=== PATIENT | female | born 1980 | race Caucasian/White ===

== ENCOUNTER 2017-10-21 15:41 | Emergency (ER) | payer OTHER, SELFPAY ==
[2017-10-21 15:42] VITALS: BP 161/82; PULSE 66; RESP 16; TEMP 36.6; O2SAT 100; BMI 38.6
--- NOTE | 2017-10-21 17:02 | CT_ITS ---
STUDY: CT ABDOMEN AND PELVIS WITH CONTRAST REASON FOR EXAM: Female, 37 years old. Nausea, vomiting and mid abdominal pain. History of tubal ligation and uterine ablation. RADIATION DOSAGE (If Supplied By Facility): CTDIvol = ( 18.30 ) mGy, DLP = ( 1273.57 ) mGycm TECHNIQUE: Transaxial images were obtained from the dome of the diaphragm to the symphysis pubis with oral contrast. 100 ml of Isovue 300 contrast was administered. Sagittal and coronal images were reconstructed. Individualized dose optimization techniques were used for this CT. COMPARISON: None. FINDINGS: The visualized lung bases are unremarkable. The visualized portions of the heart are within normal limits. Fatty liver. Normal gallbladder and extrahepatic biliary system. Normal spleen. Normal pancreas. Normal bilateral adrenal glands. Normal right kidney. Normal left kidney. Normal visualized stomach. Normal small intestine. Normal colon. The appendix is visualized and appears normal. Normal abdominal aorta. Normal inferior vena cava. Normal retroperitoneum. Normal urinary bladder. The uterus demonstrates an expanded, fluid density endometrial space in the fundus measuring 2 cm in diameter and an additional widening and fluid filling of the lower uterine endometrial space with a diameter of 2.5 cm. Status post bilateral tubal ligation. The adnexal areas are otherwise unremarkable. Negative for free fluid. Normal abdominal wall. Normal osseous structures. CT/Abdomen/Pelvis WITH Contrast IMPRESSION: No acute bowel related findings. Negative for evidence of bowel obstruction, bowel perforation or inflammatory bowel changes. A normal appendix is identified. Normal size kidneys bilaterally without hydronephrosis or stones. Fatty liver. Unremarkable gallbladder, pancreas and spleen. Expansion of portions of the endometrial space as described above status post ablation. Negative for other pelvic mass or free fluid of the pelvis. Status post tubal ligation. Normal size ovaries bilaterally. Electronically Signed: Ana Griffin MD at 19:08 EST , Service support ,
[2017-10-21] MEDS: Ondansetron 4 MG/2 ML Vial IV (17:41)
[2017-10-21] MEDS: Ketorolac 30 MG/ML Syringe IV (17:41)
[2017-10-21] MEDS: 0.9% Normal Saline 1,000 ML 1000 ML IV (17:41)
[2017-10-21 17:42] LABS: Absolute Lymphocyte Count 2.01 X10^3/ul (0.83-4.51); Absolute Neutrophil Count 9.1 X10^3/uL (2.0-7.7); Basophil# 0.03 X10^3/uL; Basophil% 0.3 % (0-1); Eosinophil# 0.06 X10^3/uL; Eosinophils% 0.5 % (0-5); Hemoglobin 12.8 g/dl (12.0-15.0); Lymphocyte # 2.01 X10^3/ul (4.0); Lymphocyte % 17.5 % (19-41); Mean Corp Hgb Conc 32.8 g/gl (32-36); Mean Corpuscular Hgb 26.7 pg (27.0-32.0); Mean Corpuscular Volume 81.3 fL (81-99); Mean Platelet Vol. 9.6 fl (6.2-12.0); Monocyte# 0.28 X10^3/uL; Monocyte% 2.4 % (0-10); Neutrophil % 79.1 % (47-70); POSITIVE COUNT NO; POSITIVE DIFFERENTIAL NO; POSITIVE MORPHOLOGY NO; Platelet Count 306 K/mm3 (150-450); RBC Distribution Width CV 13.3 % (11.6-14.6); RBC Distribution Width SD 39.2 fl (35.1-43.9); White Blood Count 11.5 K/mm3 (4.4-11.0)
[2017-10-21 17:55] LABS: AST(SGOT) 26 U/L (15-37); Alanine Aminotransfer ALT/SGPT 47 U/L (13-56); Alkaline Phosphatase 79 U/L (45-117); Anion Gap 10 (5-15); BUN 9 mg/dL (7-18); BUN/Creat Ratio 13.1 RATIO (10-20); Calcium,Total 8.9 mg/dL (8.5-10.1); Chloride 106 mmol/L (98-107); Creatinine, Serum 0.69 mg/dL (0.55-1.02); EST Glomerular Filtration Rate 101 mL/min (>60); Est Glom Filt Rate - Afr Amer 122 mL/min (>60); Estimated Creatinine Clearance 94.52 ml/min; Glucose 108 mg/dL (74-106); Lipase 125 U/L (73-393); Potassium 3.8 mmol/L (3.5-5.1); Sodium Level 139 mmol/L (136-145)
[2017-10-21 18:13] LABS: Pregnancy, Serum, hCG Quali. NEGATIVE Negative (0-9 Nonpreg)
[2017-10-21 18:16] LABS: Bacteria 0 SEEN /hpf (None Seen); Mucous, Urine 0 SEEN /hpf (<or=2+); Red Blood Cells-Urine 0 SEEN /hpf (0-5); Squamous Epithelial Cells - UA 0 SEEN /hpf (5-10); White Blood Cells 0 SEEN /hpf (0-5)
[2017-10-21 18:55] LABS: Color, Urine Straw (Yellow); Glucose, Dipstick Normal (Normal); Ketone-Dipstick Negative (Negative); Leukocyte Esterase-Dipstick Negative /ul (Negative); Nitrite-Dipstick Negative (Negative); Occult Blood-Urine Negative /ul (Negative); Protein-Dipstick Negative (Negative); Urine Bilirubin Dipstick Negative (Negative); Urine Clarity Sl. Cloudy (Clear); Urine Urobilinogen Normal (Normal); Urine pH 6.5 (5.0 - 8.0)
[2017-10-21 19:07] LABS: Amorphous Sediment 1+
--- NOTE | 2017-10-21 19:15 | ED.VISSUMM ---
- ER Visit Summary Date of Service: 10/21/17 Chief Complaint: Back pain History of Present Illness: The patient is a 37 F who complains of back pain for about 5 weeks. She complains of lower back pain which radiates into the right leg down to about the level of the knee. She describes this as burning. She has been seeing a chiropractor. She has a history of prior similar symptoms. However she also complains of 5 weeks of intermittent diffuse nonfocal abdominal pain and nausea and vomiting. She states she was vomiting a lot a couple of days ago and had 3 episodes of nonbloody nonbilious emesis today. She initially attributed this to her pain. She does have a history of anxiety. She denies fever chest pain shortness of breath diarrhea urinary symptoms dysuria frequency urgency. She describes numbness tingling urinary retention or fecal incontinence. Physical Examination: Afebrile vitals are unremarkable Heart regular rate and rhythm Lungs are clear Abdomen soft nontender nondistended No reproducible back tenderness no reproducible abdominal tenderness Negative straight leg raise bilaterally normal strength and sensation of the lower extremities with 5 out of 5 dorsiflexion, plantarflexion, extensor hallucis longus Test Results: Labs notable for white blood cell count 11.5. Hepatic function lipase chemistries all normal. CT of the abdomen and pelvis is normal. Emergency Department Course and Treatment: Patient's history and examination are consistent with a lumbar radiculopathy. I am more concerned about her reported abdominal pain nausea vomiting of 5 weeks. She has a slight leukocytosis but no fever no tachycardia and her CT is normal. She was given prescriptions for naproxen and Flexeril for her back pain. She was advised to follow-up with her primary care physician. She understands to return for new or worsening symptoms was instructed on specific signs and symptoms to monitor for. She was discharged. Treatment Plan: [] Disposition: Discharge Impression: Lumbar radiculopathy Abdominal pain Vomiting This note was generated with [employer] dictation software. It may contain incorrect words, spelling, and punctuation that were not noted in review of the chart prior to signing ED Disposition - Plan for ED Patient: Chief Complaint: Back Referrals: Laura Calderon, CHER-C [Primary Care Provider] -
--- NOTE | 2017-10-21 19:18 | ED.DEP ---
ED Disposition - Plan for ED Patient: Chief Complaint: Back Instructions: ED Sciatica, ED Abdominal Pain Unkn Cause, ED Nausea Vomiting Prescriptions: Naproxen [Naprosyn] 500 mg PO BID #20 tab Cyclobenzaprine [Flexeril] 10 mg PO TID PRN #20 tab PRN Reason: Muscle Spasm Referrals: Laura Calderon, MANAGER [facility]BULATORY[facility]C [Primary Care Provider] -
[2017-10-21 19:34] VITALS: BP 122/74; PULSE 67; RESP 19; O2SAT 97
--- NOTE | 2017-10-21 19:35 | ED.RN ---
PT EDUCATED ON DISCHARGE INSTRUCTIONS AND HOME GOING PRESCRIPTIONS. PT REPORTS UNDERSTANDING. IV D/C AND COVERED WITH 2X2 GAUZE DRESSING. MINIMAL BLEEDING NOTED. AMBULATORY HOME WITHOUT ANY ASSISTANCE FROM STAFF.
== END 2017-10-21 19:37 | disposition home or self-care (01) ==
PROVIDERS: Emergency Provider Emergency Medicine; Family Provider Nurse Practitioner Family; PCP Nurse Practitioner Family
DX: M54.16 Radiculopathy, lumbar region (principal); M54.5 Low back pain; R10.9 Unspecified abdominal pain; R11.2 Nausea with vomiting, unspecified; F41.9 Anxiety disorder, unspecified; Z79.899 Other long term (current) drug therapy
CPT/HCPCS: 74177; 80053; 81001; 83690; 84703; 85025; 96361; 96374; 96375; 99283; Q9967; A4216; J2405

== ENCOUNTER → 2017-12-21 14:05 | Outpatient (CLI) | payer OTHER, SELFPAY ==
[2017-12-21 14:07] LABS: Mucous, Urine 0 SEEN /hpf (<or=2+); Red Blood Cells-Urine 0 SEEN /hpf (0-5); White Blood Cells 0 SEEN /hpf (0-5)
[2017-12-21 14:16] LABS: Color, Urine Yellow (Yellow); Glucose, Dipstick Normal (Normal); Ketone-Dipstick Negative (Negative); Leukocyte Esterase-Dipstick Negative /ul (Negative); Nitrite-Dipstick Negative (Negative); Occult Blood-Urine Negative /ul (Negative); Protein-Dipstick Negative (Negative); Specific Gravity, Urine 1.015 (1.002-1.030); Urine Bilirubin Dipstick Negative (Negative); Urine Clarity Clear (Clear); Urine Urobilinogen Normal (Normal)
[2017-12-21 14:28] LABS: Bacteria RARE /hpf (None Seen); Squamous Epithelial Cells - UA 0-5 SEEN /hpf (5-10)
== END ==
PROVIDERS: Visit Provider Physician Assistant
DX: R35.0 Frequency of micturition (principal)
CPT/HCPCS: 81001; 87086

== ENCOUNTER → 2017-12-22 12:28 | Outpatient (REF) | payer OTHER, SELFPAY | LOC: HPRAD 12:28 | PROVIDERS: Family Provider Nurse Practitioner Family; PCP Nurse Practitioner Family; Visit Provider Chiropractor | DX: M54.16 Radiculopathy, lumbar region (principal); M99.03 Segmental and somatic dysfunction of lumbar region; M99.04 Segmental and somatic dysfunction of sacral region | CPT/HCPCS: 72110 ==

== ENCOUNTER → 2018-03-13 16:25 | Outpatient (CLI) | payer OTHER, SELFPAY ==
--- NOTE | 2018-03-13 16:28 | RAD_ITS ---
STUDY: X-RAY - PELVIS AND RIGHT HIP REASON FOR EXAM: Female, 37 years old. Chronic hip pain. TECHNIQUE: Radiological exam, hip, unilateral, with pelvis when performed; 2 or 3 views. COMPARISON: CT dated October 21, 2017 FINDINGS: There is a non-specific bowel gas pattern. There are bilateral surgical clips suggestive of prior tubal ligation. Normal bilateral iliac wings, sacroiliac joints and visualized sacrum. Normal bilateral superior and inferior pubic rami. Normal pubic symphysis. Normal bilateral ischial tuberosities. Normal visualized femoral head. Normal acetabulum. Normal hip joint. RAD/Hip 2-3 Views with Pelvis IMPRESSION: Within normal limits x-ray examination of the pelvis and hip. Electronically Signed: Elizabeth Gutiérrez MD at 8:57 EDT Tel , Service support ,
== END ==
PROVIDERS: Family Provider Nurse Practitioner Family; PCP Nurse Practitioner Family; Visit Provider Nurse Practitioner Family
DX: M25.551 Pain in right hip (principal)
CPT/HCPCS: 73502

== ENCOUNTER 2018-04-10 17:00 | Outpatient (RCR) | payer SELFPAY ==
--- NOTE | 2018-03-20 17:35 | HP.PTEVAL_ITS ---
Patient's Visit Information KHADIJAH WEINSTEIN is a 37 year old F referred to Physical Therapy by ESSENCE Villa with a diagnosis of R hip pain/ piriformis syndrome. Date of Evaluation: 03/20/18 Physical Therapist: Loyda Lucio, PT - Visit Plan Frequency: 2x /Week Duration: 4 Weeks Plan: Therapeutic exercises and activities targeting BLE, core and low back strength, endurance, range of motion and flexibility. Modalities and Manual as needed, including dry needling 1 x week, to decrease pain, increase range of motion and correct alignment. Incorporate HEP to promote maintainence and independence. - Subjective Subjective: Patient presents in therapy today with right hip/buttock pain that has been going on since September. States pain started as sciatic pain but now just in hip area. Reports that the last 3 days she hasnt had pain but when she does she has severe pain that makes her vomit. She was seeing Dr. Davenport 6-7 times since December but now on an as need basis. She used cold compress, hot bath to help with pain. She has flexural prescribed but does not take it. Pain worsens when standing a long time, bending over, and laying on the right hip. She has been limiting her lifting. 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 X-ray performed with no significant findings. PMHx: No noted heart, respiratory, neuro, MSK issues - Objective Posture: Sitting slouched in chair increased posterior pelvic. Sensation: Intact to light touch. Palpation: Tenderness to palpation along R L2-L4 area, along periformis and R greater trochanter; Tightness to palpation of R piriformis. Alignment: Increased anterior rotation of L ASIS compared to R resulting in L medial malleoli longer than R and L ischial tuberosity deeper than R. Range of Motion: WFL lumbar ROM in all planes except extension moderate limitation. Slight pain with lumbar extension and flexion; B hip and knee WFL. Flexibilty: Mild tightness bilateral hamstrings -15* knee extension; Moderate tightness R piriformis compared to L (mild tightness). Strength: BLE grossly 5/5 strength except bilateral hip abduction 4/5, bilateral hip extension 4/5, bilateral hip flexion 4/5; core strength grossly 4-/5 and low back 4/5 strength. Gait: Patient ambulating with heel/toe foot progression with equal WB through BLE; slight lateral lean of trunk to the right. Patient instucted on self MET to correct pelvic alignment which corrected after exercise and abdominal holds to start as HEP - Goals Goal 1:: Patient will increase core and low back strength by 1 muscle grade for improved posture Goal Time Frame: 4-6 Weeks Goal 2:: Patient will increase B hip strength grossly 5/5 for improved performance with functional activities Goal Time Frame: 4-6 Weeks Goal 3:: Patient will increase B hamstring and piriformis flexibility for improved mobility Goal Time Frame: 4-6 Weeks Goal 4:: Patient will maintain pelvic alignment for 3 consecutive repetitions for improved posture Goal Time Frame: 4-6 Weeks Goal 5:: Patient will display minimal limitation in low back extension for improved mobility Goal Time Frame: 4-6 Weeks Goal 6:: Patient will carry a 10# box 20 ft. without increase in low back or hip pain Goal Time Frame: 4-6 Weeks - Rehabilitation Potential Physical Therapy Diagnosis: Muscle Weakness, Limited Flexibility Rehabilitation Potential: Good - Anticipated Interventions Patient/Client Instruction: Educate patient on: Condition, Plan of Care For the Purpose of:: To decrease pain, To increase ROM, To improve muscle performance and motor function, To improve ability to perform ADL's, To improve ability of physical actions for home/community/work/leisure, To improve gait and locomotor functions, To increase flexibility/ROM, To improve endurance Therapeutic Exercise to Include: Strength training, Endurance training, Body mechanics, Postural training, Flexibilty training, Gait and locomotor training, Passive ROM, Active ROM, Dynamic Lumbar Stabilization, Yves Exercises For the Purpose of:: To decrease pain, To increase ROM, To improve muscle performance and motor function, To improve ability to perform ADL's, To improve performance and independence with ADL's, To improve ability of physical actions for home/community/work/leisure, To improve gait and locomotor functions, To increase flexibility/ROM, To improve endurance Functional Training to Include: ADL Training, Functional work training For the Purpose of:: To increase ROM, To improve muscle performance and motor function, To improve ability to perform ADL's, To improve performance and independence with ADL's, To improve ability of physical actions for home/ community/work/leisure Manual Therapy Techniques to Include: Mobilization, Manipulation, Passive ROM, Functional dry needling, Soft tissue mobilization Comment: massage not covered For the Purpose of:: To decrease pain, To increase ROM, To increase flexibility/ ROM Iontophoresis (with Dexamethozone, with Acetic acid): - not covered by insurance For the Purpose of:: To decrease pain, To increase ROM Thank you for the opportunity to evaluate your patient. For Medicare and Medicare HMO plans, please review the plan of care and approve it. It will need to be FAXED BACK to us at [phone] for Medicare purposes. Please let me know if there are questions or concerns regarding this plan of care. Physician Signature: Date:
--- NOTE | 2018-06-15 11:41 | HP.PTDCNRP_ITS ---
HP - Discharge Summary (1) - Patient Information KHADIJAH WEINSTEIN was seen in my office for initial evaluation on 03/20/18. The following Plan of Care was established for this patient: Initial Frequency: 2x /Week Initial Duration: 4 Weeks - Anticipated Interventions Patient/Client Instruction: Educate patient on: Condition, Plan of Care For the Purpose of:: To decrease pain, To increase ROM, To improve muscle perfo rmance and motor function, To improve ability to perform ADL's, To improve ability of physical actions for home/community/work/leisure, To improve gait and locomotor functions, To increase flexibility/ROM, To improve endurance Therapeutic Exercise to Include: Strength training, Endurance training, Body mechanics, Postural training, Flexibilty training, Gait and locomotor training, Passive ROM, Active ROM, Dynamic Lumbar Stabilization, Yves Exercises For the Purpose of:: To decrease pain, To increase ROM, To improve muscle performance and motor function, To improve ability to perform ADL's, To improve performance and independence with ADL's, To improve ability of physical actions for home/community/work/leisure, To improve gait and locomotor functions, To increase flexibility/ROM, To improve endurance Functional Training to Include: ADL Training, Functional work training For the Purpose of:: To increase ROM, To improve muscle performance and motor function, To improve ability to perform ADL's, To improve performance and independence with ADL's, To improve ability of physical actions for home/community/work/leisure Manual Therapy Techniques to Include: Mobilization, Manipulation, Passive ROM, Functional dry needling, Soft tissue mobilization Comment: massage not covered For the Purpose of:: To decrease pain, To increase ROM, To increase flexibility/ROM Iontophoresis (with Dexamethozone, with Acetic acid): - not covered by insurance For the Purpose of:: To decrease pain, To increase ROM This patient was last seen in our office 04/10/18. Pertinent comments regarding their Physical therapy will appear below: Pt. was seen for her hip and piriformis pain in PT. Pt. was treated with stretching, US, DN and light strengthening. Pt. was having moderate success. Pt. stopped attending PT and has not been seen in ~2 months and will be DC from PT at this point in time. At this point I will be discontinuing this patient from physical therapy. I would be happy to see this patient again in the future if found appropriate by the physician. Thank you! Elfego Nevarez
== END 2018-04-10 19:00 | disposition home or self-care (01) ==
LOC: PT 17:00
PROVIDERS: Family Provider Nurse Practitioner Family; PCP Nurse Practitioner Family; Visit Provider Nurse Practitioner Family
DX: M25.551 Pain in right hip (principal); G57.01 Lesion of sciatic nerve, right lower limb
CPT/HCPCS: 97161

== ENCOUNTER 2018-06-22 16:04 | Observation (INO) | payer OTHER, SELFPAY ==
[2018-06-22] VITALS (7 sets, daily range): BP systolic 108–122; BP diastolic 65–72; PULSE 76–95; RESP 16–18; TEMP 35.9–36.9; O2SAT 93–100; BMI 38.3; BMI 38.1
[2018-06-22 12:09] LABS: Hematocrit 39.5 % (37-47); Hemoglobin 13.1 g/dl (12.0-15.0); Mean Corp Hgb Conc 33.2 g/gl (32-36); Mean Corpuscular Hgb 26.4 pg (27.0-32.0); Mean Corpuscular Volume 79.5 fL (81-99); Mean Platelet Vol. 9.7 fl (6.2-12.0); Platelet Count 267 K/mm3 (150-450); RBC Distribution Width CV 13.7 % (11.6-14.6); RBC Distribution Width SD 39.3 fl (35.1-43.9); Red Blood Count 4.97 M/mm3 (4.2-5.4); Scan Indicated on CBC? Y/N NO; White Blood Count 8.4 K/mm3 (4.4-11.0)
[2018-06-22 12:22] LABS: Internal QC Validated? YES +Cl - CLEAR BKGD
[2018-06-22 12:25] LABS: Pregnancy, Urine Negative Negative
--- NOTE | 2018-06-22 13:00 | HYST_PTH ---
PATIENT: KHADIJAH WEINSTEIN LOC: [facility] U#:[id number] AGE/SX: 37/F ROOM: [facility]325 RE06/22/[address]: Dr. Alicia Houser DO : 1980 BED: 1 DIS: 06/23/2018 SPEC #: [id number] RECD: 06/23/18 08:45 STATUS: SHAKIR REQ #: [id number] CROW: 06/22/18 13:[address]: Alicia Houser DEPT: SURGICAL PATHOLOGY RECD BY: Cuco French ENTERED: 06/23/18 11:07 SP TYPE: HYSTERECT OTHR DR: Laura Calderon, VIRTUALIZATION ENGINEER-C Tissues: Uterus, NOS Procedures: Surgery Specimen Level V HEADER OPERATION: Lap-assisted vaginal hysterectomy, bilateral salpingectomy PRE-OP DIAGNOSIS: Abnormal uterine bleeding status post endometrial ablation TISSUE SUBMITTED: Uterus and bilateral fallopian tubes MICROSCOPIC DIAGNOSIS Uterus and bilateral fallopian tubes, vaginal hysterectomy and bilateral salpingectomy: Cervix - mild chronic cystic cervicitis. Endometrium - weakly proliferative endometrium. Focal fibrosis consistent with status post endometrial ablation. Myometrium - focal adenomyosis. Proximal end right fallopian tube - focal area of old hemorrhage. Detached pieces of bilateral fallopian tubes - no pathologic diagnosis. SJ:rg 06/26/18 MICROSCOPIC DESCRIPTION Slides are reviewed. GROSS DESCRIPTION Received in fixative is one container labeled with the patient's name and designated uterus and bilateral fallopian tubes. The specimen consists of a hysterectomy specimen consisting of uterus with cervix and detached bilateral fallopian tubes. The uterus with cervix weighs 133 gm and measures 10 x 7 x 5 cm. The proximal portion of right fallopian tube is noted and measures 2 cm in length and 1 cm in diameter. One Filshie clip is noted at one edge of the specimen which appears intact. The proximal portion of the left fallopian tube is also present and measures 1.5 cm in length and 0.8 cm in diameter. The serosa is salinas, glistening. The ectocervical mucosa is focally congested. The external os is oval in contour. The endocervical canal measures 3.5 cm in length and the endocervical mucosa is salinas, glistening and unremarkable. The endometrial cavity is triangular and focally obliterated and measures 5 cm in length and 2.5 cm in width. The endometrial cavity is filled with a small amount of blood clots. No mass lesion is identified. The endometrium measures 0.1 cm in thickness. Sections of the uterine wall do not reveal any mass lesion and measures up to 2.5 cm in thickness. The detached fallopian tubes are not identified as right or left. One of the fallopian tube measures 4.5 cm in length and 1 cm in diameter. The fimbrial end is identified. Sections reveal unremarkable cut surfaces. The second tube measures 6 cm in length and 0.8 cm in diameter. It shows a Filshie clip in the proximal portion. This appears intact. Sections reveal unremarkable cut surfaces. Webmaster sections are submitted in ten cassettes as follows: 1 - anterior cervix, 2 - posterior cervix, 3 & 4 - anterior uterine wall, 5 & 6 - posterior uterine wall, 7 - right fallopian tube proximal portion, 8 - left fallopian tube proximal portion, 9 - fallopian tube without Filshie clip, 10 - fallopian tube with Filshie clip. / NAPOLEON:adore 06/23/18 TC:5 CPT: 95311
[2018-06-22] MEDS: Bupivacaine Mpf 0.5% 30 ML VIAL (14:10)
--- NOTE | 2018-06-22 16:18 | PCM.OPRPT ---
Problem List (1) Menorrhagia Status: Acute (2) Dysmenorrhea Status: Acute (3) History of uterine ablation Status: Acute Report of Operation Date of Procedure: 06/22/18 Pre-Operative Diagnosis: History of uterine ablation, post-ablation syndrome, menorrhagia, dysmenorrhea, pelvic pain Post-Operative Diagnosis: As above Surgery/Procedure Performed:: LAVH, BS, cystoscopy Description of Surgical Findings:: Normal liver edge. Normal-appearing uterus. Stenotic cervix with old blood present at time of placement of uterine manipulator. Bilateral fallopian tubes with prior tubal sterilization with Filshie clips present, otherwise normal. Bilateral ovaries normal appearing. Normal pelvis. Minimal adhesions of colon to left pelvic sidewall near broad ligament and left adnexa. Normal bladder gomez and bilateral ureteral jets visualized. skin diving teacher: Jessica Tobin Type of Anesthesia:: General Specimen's removed: Uterus, bilateral fallopian tubes, cervix Estimated Blood Loss (mL): 100 cc Description of Procedure: Indications: Patient is a 37-year-old female who presented with menorrhagia, dysmenorrhea, and pelvic pain. History of prior uterine ablation as well as tubal sterilization. Pelvic ultrasound showed cystic changes within the endometrial canal consistent with prior ablation. Patient desired a hysterectomy after discussion of her risks, benefits, and alternatives. Procedure: Patient was taken to the operating room and placed in dorsal lithotomy position using yellowfin stirrups. General anesthesia was induced. The abdomen, perineum, and vagina were prepped and draped in the usual sterile fashion. A weighted speculum was placed in the vagina and the cervix exposed. A single-tooth tenaculum was placed on the anterior lip of the cervix. A Campbell cannula was placed into the uterus for uterine manipulation. Significant cervical stenosis was noted. Upon placing the uterine manipulator into the uterus, a moderate amount of old blood was present coming from the uterus. Gloves were changed. Attention was then turned to the abdominal portion of the case. Following infiltration with Marcaine, an infraumbilical incision was made to accommodate a 5 mm port. Using the camera for direct direct visualization, the abdomen was entered at the infraumbilical site using a 5 mm port. Once confirmed intra-abdominal, the abdomen was insufflated with CO2 gas. Visualization of the peritoneal cavity was then obtained and inspection did not reveal any signs of complications from entry. The upper abdomen was examined and a normal liver edge was noted. Next under direct observation, two 5 mm ports were placed left lateral and then right lateral. There were minimal adhesions noted of the bowel to the left pelvic sidewall near the left fallopian tube, ovary, and broad ligament. Minimal adhesiolysis was performed using the LigaSure device. The left fallopian tube was then elevated, and the mesosalpinx was then cauterized and transected using the LigaSure device. The left fallopian tube was placed in the pelvic cul-de-sac. The left uterine ovarian ligament was then cauterized several times, and transected. The left round ligament was then cauterized several times, and transected. The broad ligament was then dissected into the anterior and posterior leaflets. The bladder flap was started. We then turned to the right side of the uterus. The right fallopian tube was elevated, and the LigaSure device was used to cauterize and transect along the mesosalpinx. The right utero-ovarian ligament was then cauterized several times using the LigaSure device, and transected. The right round ligament was cauterized several times, and transected. The broad ligament was then dissected into the anterior and posterior leaflets, and the bladder flap was finished. Bilateral uterine arteries were then skeletonized using the LigaSure device. Bilateral uterine arteries were then cauterized several times using LigaSure device. Attention was then turned to the vaginal portion of the case. A Bah catheter was inserted. A weighted speculum was placed in the posterior aspect of the vagina and the uterine manipulator was removed. 1% lidocaine with epinephrine was injected along the cervical vaginal reflection A circumferential incision was made at the cervical vaginal reflection using a scalpel. This was undermined first anteriorly using sharp dissection, and the anterior peritoneum was entered without difficulty. This was then repeated posteriorly. Next the uterosacral and cardinal ligaments were serially clamped, divided, and suture-ligated. This process was repeated on both sides until the specimen was completely freed. The uterus, cervix, and right fallopian tube were removed transvaginally without difficulty. The left fallopian tube was removed from the cul-de-sac. All pedicles were inspected and hemostasis was confirmed. A Gallagher's culdoplasty was performed. 3 [id number] sutures were then placed across the vaginal vault to close the vaginal cuff. All sutures were trimmed. All instruments were removed from the vagina at this time. A cystoscopy was performed in usual fashion. The bladder gomez were well visualized and bilateral ureteral jets were visualized. Gloves were then changed and attention was turned abdominally. The abdomen was insufflated using CO2 gas again and laparoscopy was performed to inspect the abdomen and pelvis. Complete hemostasis was noted. The ports were then removed under direct visualization and hemostasis was noted. The incisions were then closed with interrupted Monocryl sutures. Estimated blood loss was 100 cc. The patient tolerated the procedure well. All sponge, instrument, and sharps were counted and correct. The patient was taken to the recovery room in stable condition. - Admit VTE Documentation VTE Mechan Device Prophylaxis: SCD's
[2018-06-22] MEDS: hydrOXYzine PAM 25 MG Capsule 150 MG PO (19:03)
[2018-06-22] MEDS: Lactated Ringers 1,000 ML 75 ML IV (19:04)
[2018-06-22] MEDS: Sertraline 50 MG Tablet 75 MG PO (19:04)
[2018-06-22] MEDS: Ondansetron 4 MG/2 ML Vial IV (22:23)
[2018-06-22] MEDS: HYDROmorphone 1 MG/ML Syringe IV (22:23)
[2018-06-22] MEDS: 0.9% NaCl Peripheral Flush Adult/Peds IV (22:25)
[2018-06-23 04:00] VITALS: BP 117/67; PULSE 95; RESP 18; TEMP 36.8; O2SAT 95
[2018-06-23] MEDS: oxyCODONE 5 MG Tablet PO ×3 (05:52→11:28)
[2018-06-23 06:45] VITALS: O2SAT 96
[2018-06-23 07:35] VITALS: BP 119/71; PULSE 89; RESP 16; TEMP 36.8; O2SAT 97
[2018-06-23 07:39] LABS: Hematocrit 35.9 % (37-47); Mean Corp Hgb Conc 33.4 g/gl (32-36); Mean Corpuscular Hgb 26.5 pg (27.0-32.0); Mean Corpuscular Volume 79.4 fL (81-99); Platelet Count 277 K/mm3 (150-450); RBC Distribution Width CV 13.8 % (11.6-14.6); RBC Distribution Width SD 39.3 fl (35.1-43.9); Red Blood Count 4.52 M/mm3 (4.2-5.4); White Blood Count 12.3 K/mm3 (4.4-11.0)
[2018-06-23 07:40] LABS: Scan Indicated on CBC? Y/N NO
--- NOTE | 2018-06-23 08:29 | PN.OBGYN_ITS ---
Patient Problems: Active and Suspected Problems (Last Reviewed 01/26/18 @ 10:02 by Janel Casiano) Menorrhagia (Acute) Dysmenorrhea (Acute) History of uterine ablation (Acute) Subjective: Patient doing well this morning. Tolerated a regular diet last night without vomiting. Had some nausea overnight but is now resolved. Has been ambulating to the bathroom and back without difficulty. Has been spontaneously voiding without difficulty. Pain was controlled with IV pain medication overnight, and now she is taking oral pain medication and feels her pain is still controlled. Denies fevers, chest pain, shortness of breath, leg pain. She feels ready to go home today. - Physical Exam General: Alert, Oriented x3 HEENT: Atraumatic Lungs: - - No increased resp effort Abdomen: Soft, Non-Distended, - - ATTP, incisions c/d/i Extremities: No Calf Tenderness Skin: No rashes Neurological: Neuro grossly intact Psych/Mental Status: Normal Affect, Appropriate Vital Signs Temp Pulse Resp BP Pulse Ox 98.2 F 89 16 119/71 97 06/23/18 07:35 06/23/18 07:35 06/23/18 07:35 06/23/18 07:35 06/23/18 07:35 Oxygen Delivery Method Room Air Weight: 223 lb 5.252 oz Body Mass Index (BMI) 38.1 Intake and Output for Last 24 Hours 06/21/18 06/22/18 06/23/18 23:59 23:59 23:59 Intake Total 3067 / 3067 700 / 700 Output Total 375 / 375 2300 / 2300 Balance 2692 / 2692 -1600 / -1600 Laboratory Tests Past 24 Hrs 06/22/18 06/22/18 06/22/18 11:30 11:55 11:55 WBC 8.4 RBC 4.97 Hgb 13.1 Hct 39.5 MCV 79.5 L MCH 26.4 L MCHC 33.2 RDW 13.7 RDW Differential 39.3 Plt Count 267 MPV 9.7 Urine Test Negative Blood Type O NEGATIVE Antibody Screen NEGATIVE 06/23/18 06:50 WBC 12.3 H RBC 4.52 Hgb 12.0 Hct 35.9 L MCV 79.4 L MCH 26.5 L MCHC 33.4 RDW 13.8 RDW Differential 39.3 Plt Count 277 MPV 10.0 Urine Test Blood Type Antibody Screen Medical Necessity - Tobacco Use Smoking Status: Never smoker Assessment/Plan All Active Problems (Last Reviewed 01/26/18 @ 10:02 by Janel Casiano) Menorrhagia (Acute) Dysmenorrhea (Acute) History of uterine ablation (Acute) Segmental and somatic dysfunction of sacral region (Acute) Segmental and somatic dysfunction of pelvic region (Acute) Lumbar radiculopathy, right (Acute) Segmental and somatic dysfunction of lumbar region (Acute) Abdominal pain (Acute) Dysuria (Acute) She is postoperative day 1 from a [facility], BSO, cystoscopy. She is doing well. Meeting her milestones. Urine output was adequate overnight. Afebrile and vital signs stable. Hemoglobin 12 today from 13 preoperatively. Will discharge home today. Discussed surgery findings with patient. Discussed home-going instructions. Options for Percocet, Motrin, and Colace were given. She is to follow-up in 2 weeks, and then in 6 weeks in the office.
--- NOTE | 2018-06-23 08:32 | DCINST_ITS ---
- Discharge Diagnoses Current Active Problems: Current Active and Chronic Problems (Last Reviewed 01/26/18 @ 10:02 by Janel Casiano) Menorrhagia (Acute) Dysmenorrhea (Acute) History of uterine ablation (Acute) You will use the following diet at home:: No restrictions, Regular Discharge Activity: May not drive while taking narcotic pain medications., May Shower, - - No tub baths May resume sexual activity in: 6-8 weeks Weight Bearing Status: Weight bearing as tolerated Lifting Restrictions: No heavy lifting > 25 pounds Call your doctor if your incision/area has: Increased Pain/ Swelling, Increased Redness, Foul Smelling Discharge, Swelling at the incision site Call your doctor if you observe: Fever of 101 or Higher, Inability to urinate, Inability to have a bowel movement, Using more than one pad per hour, Shortness of breath, Dizziness, Chest pain, Calf discomfort, Uncontrolled pain Cleanse incision/area with: Soap & Water Allergies/Adverse Reactions: Allergies ketorolac [From Toradol] Allergy (Verified 06/16/18 11:29) Hives Penicillins Allergy (Verified 12/21/17 09:36) Rash Medications to take at Discharge Hydroxyzine HCl 150 mg PO QHS 10/21/17 Sertraline HCl [Zoloft] 30 mg PO QHS 10/21/17 Docusate Sodium [Colace] 100 mg PO BID PRN #60 capsule 06/22/18 Ibuprofen [Motrin] 800 mg PO Q8H PRN #30 tablet 06/22/18 Oxycodone HCl/Acetaminophen [Percocet 5/325] 1 tab PO Q6H PRN PRN 7 Days #28 tab 06/22/18 The following prescriptions were given: Oxycodone HCl/Acetaminophen [Percocet 5/325] 1 tab PO Q6H PRN PRN 7 Days #28 tab PRN Reason: Pain Ibuprofen [Motrin] 800 mg PO Q8H PRN #30 tablet PRN Reason: Pain Docusate Sodium [Colace] 100 mg PO BID PRN #60 capsule PRN Reason: Constipation Primary Care Physician: Laura Calderon NP-C [Primary Care Provider] - Test Results: Test results from this visit will be discussed in further detail at your follow- up appointment, if applicable. Please Follow Up With: Alicia Houser DO When: 2 weeks and 6-8 weeks
[2018-06-23] MEDS: Docusate Sodium 100 MG Capsule PO (11:33)
== END 2018-06-23 11:39 | disposition home or self-care (01) ==
LOC: SDC 16:16
PROVIDERS: Admitting Provider Obstetrics & Gynecology; Family Provider Nurse Practitioner Family; PCP Nurse Practitioner Family; Referring Provider Obstetrics & Gynecology; Visit Provider Obstetrics & Gynecology
PROC: 0UT9FZZ Resection of Uterus, Via Natural or Artificial Opening With Percutaneous Endoscopic Assistance (ICD-10-PCS; CPT 58552; principal; 2018-06-22 12:35)
DX: N92.0 Excessive and frequent menstruation with regular cycle (principal); N72 Inflammatory disease of cervix uteri; N80.0 Endometriosis of uterus; N73.6 Female pelvic peritoneal adhesions (postinfective); M48.02 Spinal stenosis, cervical region; M99.05 Segmental and somatic dysfunction of pelvic region; M99.04 Segmental and somatic dysfunction of sacral region; M54.16 Radiculopathy, lumbar region; F41.9 Anxiety disorder, unspecified; K21.9 Gastro-esophageal reflux disease without esophagitis; E78.00 Pure hypercholesterolemia, unspecified; Z79.899 Other long term (current) drug therapy
CPT/HCPCS: 58552; 36415; 81025; 85027; 86850; 86900; 88307; 96361; 96374; 96375; 99218; J7120; A4216; G0378; G0379; J2405

== ENCOUNTER → 2020-02-25 16:05 | Outpatient (CLI) | payer OTHER, SELFPAY ==
--- NOTE | 2020-02-25 16:14 | CT_ITS ---
STUDY: CT MAXILLOFACIAL SINUSES REASON FOR EXAM: Female, 39 years old. SINUSITIS, SINUS PRESSURE-BILAT BUT WORSE ON RIGHT, ARMENTA, HEARS and quot; CRACKLING NOISE and quot; IN RT EAR, FEELS LIKE THERE IS WATER IN RT EAR RADIATION DOSAGE (If Supplied By Facility): CTDIvol = ( 33.45 ) mGy, DLP = ( 804.77 ) mGycm TECHNIQUE: The patient was scanned in a multi detector CT scanner. High resolution axial imaging was performed without the administration of intravenous contrast material. Sagittal and coronal images were reconstructed. Individualized dose optimization techniques were used for this CT. COMPARISON: None. FINDINGS: FRONTAL SINUSES: Normal aeration, without mucosal inflammatory disease. ETHMOIDAL SINUSES: Normal aeration, without mucosal inflammatory disease. MAXILLARY SINUSES: Normal aeration, without mucosal inflammatory disease. There is either a polyp or mucous retention cyst in the base of the left maxillary sinus SPHENOIDAL SINUSES: Normal aeration, without mucosal inflammatory disease. There is patency of the bilateral maxillary infundibuli with normal uncinate processes, ethmoid bullae, and hiatus semilunaris. Normal bilateral middle turbinates. Normal bilateral inferior turbinates. There is a right sided nasal septal deviation, with a nasal septal spur. There is patency of the bilateral nasal airways. The visualized osseous structures are normal. The visualized bilateral orbital contents are normal. CT/Sinus/Facial Bone IMPRESSION: Polyp or mucous retention cyst in the base of the left maxillary sinus Remaining paranasal sinuses are free of mucosal thickening or abnormality. Nasal septal deviation to the right No suspicious osseous lesion Electronically Signed: Van Vazquez MD at 8:21 EDT , Service support ,
== END ==
PROVIDERS: PCP Nurse Practitioner Family; Referring Provider Otolaryngology; Visit Provider Otolaryngology
DX: J32.9 Chronic sinusitis, unspecified (principal)
CPT/HCPCS: 70486

== ENCOUNTER → 2020-03-24 17:48 | Outpatient (CLI) | payer OTHER, SELFPAY | PROVIDERS: PCP Nurse Practitioner Family; Referring Provider Otolaryngology; Visit Provider Otolaryngology | DX: Z11.59 Encounter for screening for other viral diseases (principal) | CPT/HCPCS: 87635; G2023; U0003 ==